=== PATIENT | female | born 1970 | race Caucasian/White ===

== ENCOUNTER 2019-07-20 14:59 | Outpatient (CLI) | payer MEDICARE, SELFPAY ==
--- NOTE | 2019-07-20 15:13 | MR_ITS ---
WS: [id number] MRI LEFT lower leg, noncontrast. HISTORY: Rule out Achilles tendon rupture. COMPARISON: LEFT ankle radiograph 03/28/2019. Multiplanar, multisequence imaging is performed of the LEFT lower extremity. Metallic artifact through the ankle as there are screws in the medial malleolus. There is focal increased signal in the distal posterior surface of the Achilles tendon, 6.2 cm superi or to its insertion site. Signal extends obliquely through the tendon but the entire tendon is otherw ise intact. This is most consistent with tendinopathy with a small amount of adjacent fluid. Tendon m easures 13 mm AP diameter at the site of pain. No muscle atrophy or edema. MR/MR lower leg LT wo con* [id number] IMPRESSION: 1. No full-thickness Achilles tendon tear. 2. Noninsertional mucoid degeneration and Achilles tendinopathy.
== END 2019-07-20 15:00 | disposition home or self-care (01) ==
LOC: RADWPI 15:04
PROVIDERS: Family Provider Internal Medicine; PCP Internal Medicine; Visit Provider Podiatrist Foot & Ankle Surgery
DX: S86.012A Strain of left Achilles tendon, initial encounter (principal); X58.XXXA Exposure to other specified factors, initial encounter
CPT/HCPCS: 73718

== ENCOUNTER 2019-07-31 08:29 | Outpatient (RCR) | payer MEDICARE, SELFPAY | END 2019-08-28 23:59 | disposition home or self-care (01) | LOC: SPT 08:29 | PROVIDERS: Family Provider Internal Medicine; PCP Internal Medicine; Referring Provider Podiatrist Foot & Ankle Surgery; Visit Provider Podiatrist Foot & Ankle Surgery | DX: M76.62 Achilles tendinitis, left leg (principal) | CPT/HCPCS: 97110; 97140; 97161 ==

== ENCOUNTER 2019-10-05 06:09 | Day surgery (SDC) | payer MEDICARE, SELFPAY ==
[2019-10-04 15:16] VITALS: BMI 38.4
[2019-10-05 06:19] VITALS: BP 121/84; PULSE 76; RESP 16; TEMP 36.7; O2SAT 97
[2019-10-05] MEDS: sodium chloride 0.9% 1,000 ML 30 ML IV (06:47)
--- NOTE | 2019-10-05 06:47 | ANES.PREANE2 ---
Pre-Anesthetic Assessment Pre-Anesthetic Assessment: Height/Weight: Height 1.75 m Weight 117.934 kg Temp Pulse Resp BP Pulse Ox 98.1 F 76 16 121/84 97 10/05/19 06:19 10/05/19 06:19 10/05/19 06:19 10/05/19 06:19 10/05/19 06:19 Preop Diagnosis: Left Achilles tendinosis with tear Proposed Procedure: Operation Date: 10/05/19 07:00 Proposed Procedures p Debridement Achilles tendonosis left (M67.88)(Left) - Butch Fraire DPM s Tendon Repair Foot secondary repair achillies tendon 37668 (M67.88)(Left) - Butch Fraire DPM Last intake: Intake Last Liquid Date 10/04/19 Last Liquid Time 23:00 Last Solid Date 10/04/19 Last Solid Time 23:00 PFSH Anesthesia PFSH: Social History Smoking and tobacco status: current every day smoker Alcohol intake: current Alcohol intake frequency: holidays/special occasions only 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
--- NOTE | 2019-10-05 06:47 | ANES.PREANE2 ---
Pre-Anesthetic Assessment Pre-Anesthetic Assessment: Height/Weight: Height 1.75 m Weight 117.934 kg Temp Pulse Resp BP Pulse Ox 98.1 F 76 16 121/84 97 10/05/19 06:19 10/05/19 06:19 10/05/19 06:19 10/05/19 06:19 10/05/19 06:19 Preop Diagnosis: Left Achilles tendinosis with tear Proposed Procedure: Operation Date: 10/05/19 07:00 Proposed Procedures p Debridement Achilles tendonosis left (M67.88)(Left) - Butch Fraire DPM s Tendon Repair Foot secondary repair achillies tendon 93245 (M67.88)(Left) - Butch Fraire DPM Was Beta Paul taken within 24 hours: Yes Last intake: Intake Last Liquid Date 10/04/19 Last Liquid Time 23:00 Last Solid Date 10/04/19 Last Solid Time 23:00 Social: Social History: Alcohol and Tobacco Packs per day: 1 Exam: Pre-Anes Outpt Exam: alert, oriented x 3, clear to auscultation bilaterally and regular rate & rhythm Airway: Submandibular: WNL Cervical ROM: WNL MP: 2 Dentition: Full History/ROS: No significant history except as noted and No significant complaints Pulmonary: Pulmonary: Cough CV/HEM: CV/HEM: HTN : : None reported Hepatic: Hepatic: None reported GI: GI: None reported Metabolic: Metabolic: None reported Musc/skel: Musc/skel: None reported Neuropsych: Neuropsych: None reported Anesthetic Plan: ASA status: 2 Anesthesia: Anesthesia Evaluation and MAC Risk of > 500 ml blood loss (7ml/kg in children): No PFSH Anesthesia PFSH: Social History Smoking and tobacco status: current every day smoker Alcohol intake: current Alcohol intake frequency: holidays/special occasions only 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
--- NOTE | 2019-10-05 06:58 | P.HPUD_ITS ---
Surgery/Procedure H&P Update DATE OF PROCEDURE: October 05, 2019 DATE H&P PERFORMED: 09/27/19 H&P UPDATE INFORMATION: I have reviewed H&P completed within last 30 days, I have examined patient prior to procedure, No changes to prior documentation and H&P is in [facility] EMR on date indicated PREOP DIAGNOSIS: Left Achilles tendinosis with tear PLANNED PROCEDURE: Operation Date: 10/05/19 07:00 Proposed Procedures p Debridement Achilles tendonosis left (M67.88)(Left) - Butch Fraire DPM s Tendon Repair Foot secondary repair achillies tendon 05776 (M67.88)(Left) - Butch Fraire DPM
[2019-10-05] MEDS: lidocaine 1% INJ 20 mL SUBCUT (07:16)
[2019-10-05 07:58] VITALS: BP 106/65; PULSE 75; RESP 18; TEMP 36.2; O2SAT 95
[2019-10-05] MEDS: oxyCODONE-APAP 5-325 mg Tablet 1 TAB PO (08:27)
[2019-10-05 08:30] VITALS: BP 118/63; PULSE 67; RESP 18; O2SAT 99
--- NOTE | 2019-10-07 21:15 | PM.OP ---
Operative Report Date of procedure: October 05, 2019 Pre-op Diagnosis: Left Achilles tendinosis with tear Post-op diagnosis: same Procedure Done: Left Achilles tendon repair CPT code 01171 Implants: Pathology: none sent Surgeon: Butch Fraire D.P.M. Anesthesia: MAC Estimated blood loss: 2 mL Condition: stable Disposition: PACU Brief History: Ms. Waters is a pleasant 49-year-old female with recalcitrant left Achilles pain. MRI consistent with Achilles tendinosis conservative treatments consisted of heel left, active and passive stretching, eccentric loading, NSAIDs, gabapentin and formal physical therapy without improvement. Recommended primary repair with extensive debridement of left Achilles tendon risks include pain, bleeding, numbness, infection, Achilles tendon rupture, failure to alleviate pain and need for further surgical intervention. Patient is agreeable wishes to proceed. Procedure: Under mild sedation the patient was brought to the operating room and placed on the operating table in supine position. A timeout was performed. Anesthesia was then administered by the anesthesia service. Local anesthesia was injected by myself consisting of 30 cc of 0.5% Marcaine plain in a local field block at the left posterior leg. Left lower extremity was scrubbed, prepped and draped utilizing normal aseptic technique. Left foot was examined a weighted with an Esmarch bandage and a tourniquet was inflated, this was high calf and inflated to 250 mmHg. lead principal technical architect elevated the left leg to allow access and direct visualization of the posterior leg. A linear longitudinal incision was made 4 cm in length this was approximately 6 cm proximal to the Achilles tendon insertion and posterior calcaneus. Dissection was carried down sharply to the level of the peritenon utilizing sharp and blunt technique care was taken to retract and preserve neurovascular and tendon structures. Bleeders were ligated and cauterized as necessary. Linear peritenon incision was made directly visualized in the underlying Achilles tendon which I was able to visualize a longitudinal split tear at the midsection, dissection through this tear I was able to visualize degenerative fibrotic and mucoid degeneration of the Achilles tendon which was sharply debrided. Utilizing a Coblation wand in a grid system fashion quarter inch spacing further debridement was performed. Longitudinal midsection tear was then repaired utilizing a buried suture of 3-0 Prolene. Incision site was flushed with copious months of sterile saline solution. Amniotic graft was introduced to the posterior aspect of the Achilles tendon this was to help reduce inflammation and scar tissue as well as adhesions. Peritenon was reapproximated utilizing 4-0 Prolene. Subcutaneous tissue reapproximated utilizing 4-0 Prolene and skin closed with 4-0 nylon. Incision site was dressed with Adaptic, sterile 4 x 4's, Kerlix and Elias wrap followed by application of cam boot. Tourniquet was deflated and a prompt hyperemic response was noted to the distal digits of the left foot. Patient tolerated the procedure and anesthesia well and was transferred to the PACU with vital sign stable and vascular status intact. Following a period of postoperative monitoring she will be discharged home was given my cell phone number is to contact with any postoperative questions or concerns.
== END 2019-10-05 08:45 | disposition home or self-care (01) ==
PROVIDERS: PCP Internal Medicine; Visit Provider Podiatrist Foot & Ankle Surgery
PROC: (CPT 27650; principal; 2019-10-05 07:00)
PROC: (CPT 27650; 2019-10-05 07:00)
DX: S86.012A Strain of left Achilles tendon, initial encounter (principal); X58.XXXA Exposure to other specified factors, initial encounter; I10 Essential (primary) hypertension; F17.210 Nicotine dependence, cigarettes, uncomplicated
CPT/HCPCS: 27650; 12345; 96365; C1713; C9359; J0131; J0690; J1100; J1885; J2001; J2250; J2704; J3010; J3490; J7030

== ENCOUNTER 2019-11-08 10:28 | Outpatient (RCR) | payer MEDICARE, SELFPAY | END 2019-11-27 23:59 | disposition home or self-care (01) | LOC: SPT 10:28 | PROVIDERS: PCP Internal Medicine; Visit Provider Podiatrist Foot & Ankle Surgery | DX: Z47.89 Encounter for other orthopedic aftercare (principal); S86 Injury of muscle, fascia and tendon at lower leg level; X58.XXXS Exposure to other specified factors, sequela | CPT/HCPCS: 97035; 97110; 97161 ==

== ENCOUNTER 2021-04-27 18:29 | Emergency (ER) | payer MEDICARE, SELFPAY ==
--- NOTE | 2021-04-27 18:35 | XRR_ITS ---
PROCEDURE INFORMATION: Exam: XR Chest Exam date and time: 04/27/2021 6:35 PM Age: 50 years old Clinical indication: Cough and shortness of breath; Additional info: SOB TECHNIQUE: Imaging protocol: XR of the chest. Views: 1 view. COMPARISON: CR Chest 1 [place] [id number] 11/19/2017 9:10 AM FINDINGS: Lungs: Unremarkable. No consolidation. Pleural spaces: Unremarkable. No pleural effusion. No pneumothorax. Heart/Mediastinum: Unremarkable. No cardiomegaly. Bones/joints: Unremarkable. XR/XR chest 1V portable [id number] IMPRESSION: No acute findings. Radiation Dose CTDIVOL = (mGy): DLP = (mGy-cm)
[2021-04-27 19:09] VITALS: BP 142/90; PULSE 75; RESP 16; TEMP 36.7; O2SAT 96; BMI 39.9
[2021-04-27 22:06] LABS: SARS Covid-2 Antigen Negative (Negative)
--- NOTE | 2021-04-27 22:24 | W.ED.COVID ---
HPI - COVID General: Chief Complaint: COVID symptoms Stated Complaint: sob, cough, chills, weak Time Seen by Provider: 04/27/21 22:18 Triage information: Has fever, cough or shortness of breath. No known COVID + exposure last 14 days History of Present Illness: HPI Narrative: 50-year-old female comes in today with persistent cough and congestion for about 3 weeks. Patient is a chronic smoker. Patient was seen last week and started on prednisone and doxycycline. Patient has just completed the prednisone which was 5 days. Patient has about 5 more days of doxycycline left. Patient appears well. Patient appears in no pain. Patient reports continued complaints of fatigue and cough and congestion. COVID 19 common symptoms: positive non-productive cough, dyspnea and fatigue COVID Results: SARS-CoV-2 Antigen (Rapid) Negative (Negative) 04/27/21 21:26 04/27/21 Review of Systems General: Reports: 10 or more systems reviewed and unremarkable except in HPI and below Const: Reports: fatigue Resp: Reports: dyspnea and non-productive cough PFSH ED PFSH: Medical History (Updated 04/27/21 @ 22:35 by NORMA Broderick) Hypertension Surgical History History of History of hysterectomy Social History Smoking and tobacco status: current every day smoker Alcohol intake: current Alcohol intake frequency: holidays/special occasions only 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: Date of last menstrual period: 10/11/01 Physical Exam Const: COMMON NORMALS: no acute distress and patient oriented x3 GENERAL APPEARANCE: cooperative HENMT: COMMON NORMALS: normocephalic, TM's normal bilaterally and Normal external nose present HEAD & SCALP: normal to inspection and normocephalic NOSE: Normal external nose present TYMPANIC MEMBRANE: TM's normal bilaterally MOUTH: Normal oral and palatal mucosa present THROAT: posterior oropharynx normal Eye: GENERAL EYE: appearance normal, both eyes and all related structures Neck/C-Spine: COMMON NORMALS: full ROM Lymph: LYMPHATIC: no lymphadenopathy noted Chest: COMMONS NORMALS: normal inspection of the chest Resp: COMMON NORMALS: normal respiratory effort EFFORT & INSPECTION: Yes able to speak in complete sentences AUSCULTATION: wheezes Cardio: COMMON NORMALS: regular rate and regular rhythm RATE: regular rate RHYTHM: regular rhythm GI: COMMON NORMALS: non-tender : COMMON NORMALS: Yes no CVA tenderness BLADDER/KIDNEY EXAM: Yes no CVA tenderness Back/Pelvis: COMMON NORMALS: no CVA tenderness and thoracic and lumbar spine normal to inspection Extremity: COMMON NORMALS: normal to inspection Neuro: COMMON NORMALS: patient oriented x3 and moves all extremities Psych: COMMON NORMALS: mental status grossly normal and cooperative Skin: COMMON NORMALS: no rashes or lesions noted GENERAL SKIN EXAM: no rashes or lesions noted Course Vital Signs: Vital signs: Vital Signs Temperature 98.1 F 04/27/21 19:09 Pulse Rate 75 04/27/21 19:09 Respiratory Rate 16 04/27/21 19:09 Blood Pressure 142/90 04/27/21 19:09 Pulse Oximetry 96 04/27/21 22:31 MDM - COVID MDM Narrative: Medical decision making narrative: Patient comes in today for complaints of cough and congestion for 3 weeks. On exam lungs have some light wheezing. Skin is warm and dry. Vital signs are normal. Differential diagnosis includes post viral cough, chronic bronchitis, COPD versus asthma. We will add to patient's regimen Symbicort inhaler 2 puffs twice daily, albuterol as needed. Patient will continue with doxycycline. And I will add back prednisone 40 mg daily for 5 more days. I instructed patient on bronchitis and COPD type symptoms. Recommended patient stop smoking. Recommend follow-up with primary care in 1 week for recheck. Patient reported understanding and agreed to plan. Patient was given a gram of Rocephin tonight and 10 mg of dexamethasone for therapy initiation. Lab Data: Labs: Lab Results 04/27/21 21:26 SARS-CoV-2 Ag (Rap id) Negative (Negative) COVID Results: SARS-CoV-2 Antigen (Rapid) Negative (Negative) 04/27/21 21:26 04/27/21 Discharge Plan Discharge Patient Disposition: Home Clinical Impression: Bronchitis Condition: Stable Prescriptions: New prednisone 20 mg tablet 20 mg PO BID 5 Days Qty: 10 RF: 0 Symbicort 80-4.5 mcg/actuation HFA aerosol inhaler 2 inh inhalation BID Qty: 10.2 RF: 0 albuterol sulfate 90 mcg/actuation HFA aerosol inhaler 2 inh inhalation Q4H PRN (Reason: shortness of breath or wheezing) Qty: 8.5 RF: 0 No Action fluoxetine [Prozac] 20 mg capsule 60 mg PO DAILY RF: 0 metoprolol tartrate 25 mg tablet 25 mg PO BID RF: 0 quetiapine [Seroquel] 100 mg tablet 100 mg PO DAILY RF: 0 (DME) heel lift See Rx Instructions .ROUTE .MEDSUPPLY Qty: 1 RF: 0 Discharge Orders: Discharge ED (Routine); Ordered 04/27/21 Ordered By: Yobany Velasquez Referrals: Luke Tucker DO [Primary Care Provider] - Discharge Diet: Usual diet Discharge Activity: Increase activity as tolerated Patient Instructions: Chronic Bronchitis (ED), Opioid Safety Activity Restrictions/Additional Instructions: Use inhalers as directed. Good oral care after the use of the budesonide?formoterol inhaler. Drink plenty of water with medications. Continue steroids for another 5 days. Complete doxycycline prescription. Follow-up with primary care in 1 week. Return to the ER for worsening symptoms or new concerns. Coding Level of Care Code ED Head Of Marketing Analytics for Isac Duque
[2021-04-27 22:31] VITALS: O2SAT 96
[2021-04-27] MEDS: dexamethasone 10 mg/mL INJ IM (22:38)
[2021-04-27] MEDS: cefTRIAXone 1,000 MG in lidocaine 1% 2.1 ML 2 MG IM (22:40)
[2021-04-27 23:01] VITALS: BP 128/87; PULSE 74; RESP 20; O2SAT 98
== END 2021-04-27 23:02 | disposition home or self-care (01) ==
PROVIDERS: Emergency Medicine; Emergency Provider Nurse Practitioner Family; PCP Internal Medicine
DX: J40 Bronchitis, not specified as acute or chronic (principal); F17.210 Nicotine dependence, cigarettes, uncomplicated
CPT/HCPCS: 71045; 87426; 96372; 99284; J0696; J1100

== ENCOUNTER 2021-05-07 08:30 | Outpatient (CLI) | payer MEDICARE, SELFPAY ==
--- NOTE | 2021-05-07 08:35 | MM_ITS ---
WS: [id number] Exam: [id number] Date/Time of Exam: 05/07/2021 8:36 AM Reason For Exam: SCREENING VIEWS: MLO and CC views both breasts. Comparison made with prior exam of 12/20/2014 and 03/24/2017. Findings: There was no sign of mass, architectural distortion or suspicious calcification in either breast. Fa [place]ty MM/[id number] Impression: BI-RADS: 2-Benign FOLLOW-UP: 1 Year Follow-up This mammogram was also analyzed by the Computer Aided Detection System R2 Imag e Enroller.
== END 2021-05-07 08:31 | disposition home or self-care (01) ==
LOC: RADSHAW 08:32
PROVIDERS: PCP Internal Medicine; Visit Provider Internal Medicine
DX: Z12.31 Encounter for screening mammogram for malignant neoplasm of breast (principal)
CPT/HCPCS: 77067

== ENCOUNTER 2021-07-27 10:26 | Outpatient (CLI) | payer MEDICARE, SELFPAY ==
--- NOTE | 2021-07-27 10:55 | CT_ITS ---
WS: [id number] CT CHEST WITH INTRAVENOUS CONTRAST HISTORY: SUBCUTANEOUS MASS OF BACK TECHNIQUE: Contiguous 5 mm axial imaging performed on the thorax. Coronal and sagittal reformats are submitted. All CT scans at [facility] use at least one of these dose optimization techniques: automated exposure control; mA and/or kV adjustment per patient size (includes targeted exams where dose is matched to clinical indication); or iterative reconstruction. CONTRAST: Omnipaque 300; 95 mL IV. DLP: 1195.23 mGy.cm COMPARISON: 06/27/2015 Lungs and central airway: Mild hyperexpansion. Mild dependent changes posteriorly in the lower lung f ields. There is mild haziness and groundglass attenuation. There are 2 subpleural irregular shaped no dules in the RIGHT thorax, image 24 of series 5 and image 41 of series 5. These are unchanged since 2 016. No new mass. Pleura: Normal. No pleural effusion. Heart and pericardium: Normal size heart with no pericardial effusion. Mediastinum and joshua: No adenopathy. Largest lymph node is 10 mm at the RIGHT hilum. No interval reyes ge since 2015. Vessels: Atherosclerosis aorta. No aneurysm. Chest wall and lower neck: No soft tissue masses. Mild nodularity and thickening of the LEFT adrenal gland is similar to the prior exam. Visualized pancreas is normal. Upper abdomen: Diffuse hepatic steatosis. Osseous structures: No destructive process. CT/CT chest w con* [id number] IMPRESSION: 1. No soft tissue mass is identified in the posterior upper thorax. 2. Long-term stability of subsolid nodules in the RIGHT thorax as described ab ove. These nodules are stable since 2016. No pneumonia.
[2021-07-27] MEDS: iohexol 300 mg/mL 100 mL Btl IV (12:11)
== END 2021-07-27 10:27 | disposition home or self-care (01) ==
LOC: RAD 10:30
PROVIDERS: PCP Internal Medicine; Visit Provider Internal Medicine
DX: R22.2 Localized swelling, mass and lump, trunk (principal)
CPT/HCPCS: 71260

== ENCOUNTER → 2021-12-07 10:30 | Outpatient (BNVA) | payer MEDICARE, SELFPAY | PROVIDERS: PCP Internal Medicine; Visit Provider Internal Medicine | DX: R00.0 Tachycardia, unspecified (principal); I49.1 Atrial premature depolarization; I49.3 Ventricular premature depolarization | CPT/HCPCS: 93270 ==

== ENCOUNTER 2022-01-25 11:14 | Emergency (ER) | payer MEDICARE, SELFPAY ==
[2022-01-25 11:20] VITALS: BP 149/80; PULSE 77; RESP 16; TEMP 36.3; O2SAT 96; BMI 41.0
--- NOTE | 2022-01-25 11:30 | ECG_ITS ---
[facility] Test Date: 2022-01-25 Pat Name: Victoria Waters Department: Room: Gender: Female Promotions Executive: : 1970 Requested By: Davon Stevenson Order Number: [id number] Arenas MD: Satya Hutson M.D. Measurements Intervals [place] Rate: 67 P: 40 TX: 173 QRS: 37 QRSD: 77 T: 68 QT: 384 QTc: 408 Interpretive Statements SINUS RHYTHM Compared to ECG 11/19/2017 08:10:15 Sinus tachycardia no longer present Electronically Signed On 01-25-2022 14:00:30 CDT by Satya Hutson M.D. [email or web address] medical [email or web address] Softwareregency hospital [id number]
--- NOTE | 2022-01-25 11:30 | CT_ITS ---
WS: [id number] CT ANGIOGRAM CEREBRAL AND CAROTID ARTERIES HISTORY: cva TECHNIQUE: CT angiogram is performed of the carotid and cerebral arteries. During arterial injection imaging is obtained from the skull vertex to the aortic arch in 1.25 mm imaging. Coronal and sagittal reformats are submitted. Additional multi planar reformats of the carotid and cerebral arteries are submitted, MIP imaging also reviewed. NASCET criteria utilized. [facility] e at least one of these dose optimization techniques: automated exposure control; mA and/or kV adjust ment per patient size (includes targeted exams where dose is matched to clinical indication); or iter ative reconstruction. CONTRAST: Omnipaque 350; 80 mL IV. DLP: 1244.84 mGy.cm COMPARISON: None available. Carotid Angiogram: Right carotid: Common carotid artery: Arises normally from the innominate artery. No significant plaque or stenosis. Internal carotid artery: No plaque or stenosis. External carotid artery: Patent. Left carotid: Common carotid artery: Arises normally from the aorta. No significant plaque or stenosis. Internal carotid artery: Small amount calcification at the bifurcation. No high-grade stenosis. External carotid artery: Patent. Right vertebral artery: Unremarkable. Left vertebral artery: Very small caliber and intermittently visualized LEFT vertebral artery. No thr ombus identified. Subclavian arteries: No stenosis or significant abnormality. Upper thorax: Normal. Thyroid gland: Normal. Osseous structures: Anterior cervical fusion C4-5. Advanced spondylitic changes in the cervical spine . Osseous fusion at C2-3. CEREBRAL ANGIOGRAM: Intracranial vertebral arteries: Small caliber LEFT vertebral artery. Normal size RIGHT vertebral art jose ramon. Basilar artery: No significant stenosis or occlusion. No aneurysm. Intracranial Internal carotid arteries: Demonstrates no significant stenosis or plaque. Middle cerebral arteries: Normal. Anterior cerebral arteries and ACOM: Mildly hypoplastic LEFT A1 segment. Posterior cerebral arteries and PCOM's: Normal. Dural venous sinuses are normally enhancing. Mastoid air cells: Normal. Paranasal sinuses: Mucoperiosteal thickening posterior LEFT ethmoid and LEFT sphenoid sinuses. Calvarium: Normal. CT/CT angio headneck* [id number] IMPRESSION: 1. No significant carotid artery stenosis. 2. Small and intermittently visualized LEFT vertebral artery. 3. No thrombus or stenosis in the [place].
--- NOTE | 2022-01-25 11:30 | CT_ITS ---
WS: [id number] CT HEAD NONCONTRAST HISTORY: Symptoms of Acute Stroke TECHNIQUE: Contiguous axial imaging performed through the brain in 2.5 mm imaging. Bone and soft tiss ue windows. Sagittal and coronal reformats reviewed. All CT scans at [facility] use at least one of these dose optimization techniques: automated exposure control; mA and/or kV adjustment per pa tient size (includes targeted exams where dose is matched to clinical indication); or iterative recon struction. DLP: 1244.84 mGy.cm COMPARISON: None available. No acute intracranial hemorrhage, midline shift or mass effect. No atrophy or prior infarcts or herniation. Ventricles: Normal size with no hydrocephalus. No inferior displacement of the cerebellar tonsils. Paranasal sinuses: Mucoperiosteal thickening in the posterior LEFT ethmoid air cells and a small amou nt of thickening in the LEFT sphenoid sinus. Mastoid air cells: Well pneumatized. Calvarium and scalp: Skull is intact with no soft tissue edema or swelling. CT/CT head wo con* [id number] IMPRESSION: 1. No acute intracranial hemorrhage or edema. 2. Very minimal posterior LEFT ethmoid air cell and LEFT sphenoid sinus diseas e.
--- NOTE | 2022-01-25 11:31 | W.ED.NEUROSD ---
HPI - Neuro Symptoms/Deficit General: Chief Complaint: Neuro Symptoms/Deficit Stated Complaint: Possible stroke Time Seen by Provider: 01/25/22 11:25 History of Present Illness: 51-year-old female presents with left facial numbness and droop. Also reports mild numbness of her left upper extremity. Denies any pain. States that her last known well was 3 PM yesterday. Denies any other focal numbness weakness tingling vision change or hearing change. Review of Systems Narrative: - CONSTITUTIONAL: Denies weight loss, fever and chills. - HEENT: Denies changes in vision and hearing. - RESPIRATORY: Denies SOB and cough. - CV: Denies palpitations and CP. - GI: Denies abdominal pain, nausea, vomiting and diarrhea. - : Denies dysuria and urinary frequency. - MSK: Denies myalgia and joint pain. - SKIN: Denies rash and pruritus. - NEUROLOGICAL: As above - PSYCHIATRIC: Denies suicidal ideation [facility] ED PFSH: Medical History (Updated 05/05/21 @ 00:01 by ) Hypertension Surgical History History of History of hysterectomy Social History Smoking and tobacco status: current every day smoker Alcohol intake: current Alcohol intake frequency: holidays/special occasions only 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: Date of last menstrual period: 05/30/01 NIH stroke score NIHSS: Level Of Consciousness - 1a: 0 Level Of Consciousness Questions - 1b: Both Correct Level Of Consciousness Commands - 1c: Both Correct Best Gaze - 2: Normal Visual Thompson - 3: No Visual Loss Facial Palsy - 4: Minor Paralysis Motor Arm Right - 5: No Drift Motor Arm Left - 5: No Drift Motor Leg Right - 6: No Drift Motor Leg Left - 6: No Drift Limb Ataxia - 7: Absent Sensory - 8: Mild To Moderate Loss Best Language - 9: No Aphasia Dysarthia - 10: Normal Extinction And Inattention - 11: 0 Score: Total Score: 2 Physical Exam Narrative: EXAM NARRATIVE: - GENERAL: Alert and oriented x 3. No acute distress. Well-nourished. - EYES: EOMI. Anicteric. - HENT: Atraumatic, no C-spine tenderness. Moist mucous membranes. No scleral icterus. No cervical lymphadenopathy. - LUNGS: Clear to auscultation bilaterally. No accessory muscle use. Equal lung sounds bilaterally. No respiratory distress. - CARDIOVASCULAR: Regular rate and rhythm. No murmur. No JVD. - ABDOMEN: Soft, non-tender and non-distended. Negative CVA tenderness bilaterally, no rebound or guarding, negative Cooper sign. No palpable masses. - EXTREMITIES: No edema. Non-tender. - SKIN: No rashes or lesions. Warm. - NEUROLOGIC: Left facial droop and numbness. Minor numbness over the left upper extremity. Otherwise no focal deficit. - PSYCHIATRIC: Cooperative. Appropriate mood and affect. Course Vital Signs: Vital signs: Vital Signs Temperature 97.3 F L 01/25/22 11:20 Pulse Rate 66 01/25/22 13:33 Respiratory Rate 14 01/25/22 13:33 Blood Pressure 115/76 01/25/22 13:00 Pulse Oximetry 96 01/25/22 11:20 MDM - Neuro Symptoms/Deficit Medical Decision Making 51-year-old presents for left facial droop and numbness. Symptoms started 3 PM yesterday she is outside of tPA window. CT and CTA did not reveal any sign of intracranial hemorrhage or other acute abnormality. Lab work unremarkable. Neurology consulted. Remainder of lab work and imaging reviewed. Discussed with hospitalist and they agreed patient would benefit from admission. Patient admitted in stable condition. Further evaluation management per hospitalist team. Lab Data : 01/25/22 11:36 01/25/22 11:[address] 01/25/22 11:30 IMPRESSION: 1. No acute intracranial hemorrhage or edema. 2. Very minimal posterior LEFT ethmoid air cell and LEFT sphenoid sinus disease. Head/Neck CTA 01/25/22 11:30 IMPRESSION: 1. No significant carotid artery stenosis. 2. Small and intermittently visualized LEFT vertebral artery. 3. No thrombus or stenosis in the [place]. Laboratory Results WBC 11.7 10^3/uL (4.0-10.0) H 01/25/22 11:36 RBC 4.93 10^6/uL (4.1-5.3) 01/25/22 11:36 Hgb 15.2 g/dL (11.5-15.3) 01/25/22 11:36 Hct 46.7 % (37.0-47.0) 01/25/22 11:36 MCV 94.7 fl (81-99) 01/25/22 11:36 MCH 30.8 pg (28.0-34.0) 01/25/22 11:36 MCHC 32.5 g/dL (30.0-36.0) 01/25/22 11:36 RDW 12.9 % (12.1-15.1) 01/25/22 11:36 Plt Count 387 10^3/cmm (130-400) 01/25/22 11:36 MPV 9.3 fL (7.4-10.4) 01/25/22 11:36 Neut % (Auto) 60.3 % 01/25/22 11:36 Lymph % (Auto) 29.3 % 01/25/22 11:36 Hendricks % (Auto) 7.2 % 01/25/22 11:36 Eos % (Auto) 2.0 % 01/25/22 11:36 Baso % (Auto) 0.9 % 01/25/22 11:36 Neut # (Auto) 7.05 10^3/uL (1.8-7.7) 01/25/22 11:36 Lymph # (Auto) 3.4 10^3/uL (0.8-4.8) 01/25/22 11:36 Hendricks # (Auto) 0.8 10^3/uL (0.2-0.9) 01/25/22 11:36 Eos # (Auto) 0.2 10^3/uL (0.0-0.8) 01/25/22 11:36 Baso # (Auto) 0.1 10^3/uL (0.0-0.1) 01/25/22 11:36 Nucleated RBC % (auto) 0 % 01/25/22 11:36 Nucleated RBCs # 0.0 /100WBC 01/25/22 11:36 PT 12.60 SECONDS (12.1-14.9) 01/25/22 11:36 INR 0.91 (0.8-1.2) 01/25/22 11:36 APTT 26.6 SECONDS (23.9-36.7) 01/25/22 11:36 Sodium 139 mmol/L (136-145) 01/25/22 11:36 Potassium 4.1 mmol/L (3.5-5.1) 01/25/22 11:36 Chloride 100 mmol/L (98-107) 01/25/22 11:36 Carbon Dioxide 28 mmol/L (22-29) 01/25/22 11:36 Anion Gap 15.1 (5-19) 01/25/22 11:36 BUN 16 mg/dL (6-20) 01/25/22 11:36 Creatinine 0.7 mg/dL (0.5-0.9) 01/25/22 11:36 GFR Calculation 87.9 mL/min (90-130) L 01/25/22 11:36 Glucose 128 mg/dL (65-115) H 01/25/22 11:36 Calculated Osmolality 291 mOsm/kg (285-295) 01/25/22 11:36 Calcium 9.3 mg/dL (8.5-10.5) 01/25/22 11:36 Total Bilirubin 0.2 mg/dL (0.15-1.2) 01/25/22 11:36 AST 37 U/L (0-32) H 01/25/22 11:36 ALT 50 U/L (0-33) H 01/25/22 11:36 Alkaline Phosphatase 129 U/L (35-105) H 01/25/22 11:36 Total Protein 6.9 g/dL (6.6-8.7) 01/25/22 11:36 Albumin 4.2 g/dL (3.5-5.2) 01/25/22 11:36 Globulin 2.7 g/dL (1.3-4.6) 01/25/22 11:36 EKG Data EKG 1: Other EKG comments: Sinus rhythm, rate of 67, anterior T wave inversions, with no sign of acute ischemia or other acute abnormality. Discharge Plan Discharge Condition: Stable Prescriptions: No Action fluoxetine [Prozac] 20 mg capsule 60 mg PO QAM (DME) heel lift See Rx Instructions .ROUTE .MEDSUPPLY Qty: 1 0RF Rx Instructions: As directed albuterol sulfate 90 mcg/actuation HFA aerosol inhaler 2 inh inhalation Q4H PRN (Reason: shortness of breath or wheezing) Qty: 8.5 0RF Tylenol Ex Str Rapid Release 500 mg Tablet 1,000 mg PO Q6H PRN (Reason: Pain) baclofen 10 mg tablet 10 mg PO BID PRN (Reason: Muscle Spasm) metoprolol tartrate 50 mg tablet 50 mg PO BID ibuprofen 200 mg Tablet 600 - 800 mg PO Q6H PRN (Reason: Pain) Excedrin Migraine 250-250-65 mg Tablet 2 tab PO Q6H PRN (Reason: Migraine Headache) Seroquel 50 mg Tablet 50 - 100 mg PO BEDTIME Referrals: Luke Tucker DO [Primary Care Provider] - Coding Level of Care Code ED Endocrinology Specialist for [facility]
[2022-01-25 11:43] LABS: Basophils # 0.1 10^3/uL (0.0-0.1); Basophils % 0.9 %; Eosinophils # 0.2 10^3/uL (0.0-0.8); Hematocrit 46.7 % (37.0-47.0); Hemoglobin 15.2 g/dL (11.5-15.3); Lymphocytes # 3.4 10^3/uL (0.8-4.8); Lymphocytes % 29.3 %; Mean Corpuscular HGB Conc 32.5 g/dL (30.0-36.0); Mean Corpuscular Hemoglobin 30.8 pg (28.0-34.0); Mean Corpuscular Volume 94.7 fl (81-99); Mean Platelet Volume 9.3 fL (7.4-10.4); Monocytes # 0.8 10^3/uL (0.2-0.9); Monocytes % 7.2 %; Neutrophils # 7.05 10^3/uL (1.8-7.7); Neutrophils % 60.3 %; Nucleated Red Blood Cells % 0 %; Platelet Count 387 10^3/cmm (130-400); Red Blood Count 4.93 10^6/uL (4.1-5.3); Red Cell Distribution Width 12.9 % (12.1-15.1); White Blood Count 11.7 10^3/uL (4.0-10.0)
[2022-01-25 11:47] VITALS: PULSE 71; RESP 8
[2022-01-25 11:56] LABS: INR 0.91 (0.8-1.2); Partial Thromboplastin Time 26.6 SECONDS (23.9-36.7)
[2022-01-25 12:00] VITALS: BP 140/73
[2022-01-25 12:05] LABS: Alanine Aminotransferase 50 U/L (0-33); Albumin Level 4.2 g/dL (3.5-5.2); Alkaline Phosphatase 129 U/L (35-105); Anion Gap 15.1 (5-19); Aspartate Amino Transferase 37 U/L (0-32); Blood Urea Nitrogen 16 mg/dL (6-20); Calcium 9.3 mg/dL (8.5-10.5); Carbon Dioxide 28 mmol/L (22-29); Chloride 100 mmol/L (98-107); Creatinine Clr Calc Pharmacy 133.8083; Globulin 2.7 g/dL (1.3-4.6); Glomerular Filtration Rate 87.9 mL/min (90-130); Glucose 128 mg/dL (65-115); Osmolality Calculated 291 mOsm/kg (285-295); Potassium 4.1 mmol/L (3.5-5.1); Sodium 139 mmol/L (136-145); Total Bilirubin 0.2 mg/dL (0.15-1.2); Total Protein 6.9 g/dL (6.6-8.7)
[2022-01-25 12:34] VITALS: PULSE 67; RESP 13
--- NOTE | 2022-01-25 12:48 | PC.PHAR ---
pt states she takes care of her own medications-pt states she doesnt have a symbicort inhaler rx filled 05/05/21-rx filled 12/25/21 90d/s for metoprolol tartrate 50mg bid and 25mg bid filled 01/05/22 30d/s pt states she takes the 50mg bid-pt states she takes seroquel 50-100mg hs rx filled 09/10/21 50mg qam and 100mg hs-notes are made in the pharmacy comments
[2022-01-25 13:00] VITALS: BP 115/76; PULSE 61; RESP 11
[2022-01-25 13:33] VITALS: PULSE 66; RESP 14
[2022-01-25] MEDS: iohexol 350 mg/mL 100 mL Btl IV (13:40)
[2022-01-25] MEDS: acetaminophen 325 mg Tablet 650 MG PO (14:43)
[2022-01-25 15:56] LABS: Alcohol Level < 10 mg/dL (0-10)
== END 2022-01-25 16:40 | disposition home or self-care (01) ==
PROVIDERS: Student in an Organized Health Care Education/Training Program; Emergency Provider Emergency Medicine; PCP Internal Medicine
DX: R20.0 Anesthesia of skin (principal); R29.810 Facial weakness; I10 Essential (primary) hypertension; F17.210 Nicotine dependence, cigarettes, uncomplicated
CPT/HCPCS: 36415; 70450; 70496; 70498; 80053; 80307; 85025; 85610; 85730; 93005; 99285; Q9967

== ENCOUNTER 2022-03-16 14:47 | Outpatient (CLI) | payer MEDICARE, SELFPAY ==
--- NOTE | 2022-03-16 | MR_ITS ---
WS: [id number] MRI BRAIN WITHOUT CONTRAST HISTORY: MOUTH DROOP DUE TO FACIAL WEAKNESS COMPARISON: CT head 01/25/2022 TECHNIQUE: Diffusion imaging, multiplanar T1, T2 and FLAIR imaging obtained. No evidence for acute infarct or hemorrhage. Paz-white matter differentiation is normal. There are a few scattered T2 and FLAIR signal hyperintensities. No prior infarct. Ventricles and extra-axial spaces are normal. No inferior displacement of cerebellar tonsils. The sella turcica and pituitary gland are unremarkabl e. Dural venous sinuses and [place] demonstrate no abnormality on this unenhanced studies. Paranasal sinuses: Small mucous retention cysts in the RIGHT maxillary sinus. Mastoid air cells: Normal. Calvarium and scalp: Intact. MR/MR head wo con* [id number] IMPRESSION: 1. No acute infarct or ischemic disease. 2. Very mild T2 and FLAIR signal hyperintensities in a distribution most likel y from small vessel disease. 3. No mass or mass effect or hemorrhage.
== END 2022-03-16 14:48 | disposition home or self-care (01) ==
LOC: RAD 14:47
PROVIDERS: PCP Internal Medicine; Visit Provider Internal Medicine
DX: R29.810 Facial weakness (principal)
CPT/HCPCS: 70551

== ENCOUNTER 2022-05-20 10:13 | Outpatient (CLI) | payer MEDICARE, SELFPAY ==
--- NOTE | 2022-05-20 10:28 | MM_ITS ---
WS: [id number] VIEWS: MLO and CC views both breasts. 3D digital tomosynthesis is also included in this exam. Comparison made with prior exam of 07/03/2007, 12/20/2014, 03/24/2017, 05/07/2021.. Findings: There was no sign of mass, architectural distortion or suspicious calcification in either breast. Sta ble appearing small nodular densities scattered throughout both breasts.Fatty MM/[place] [id number] Impression: BI-RADS: 2-Benign FOLLOW-UP: 1 Year Follow-up This mammogram was also analyzed by the Computer Aided Detection System R2 Imag e [employer]idential Interior [employer].
== END 2022-05-20 10:14 | disposition home or self-care (01) ==
LOC: RAD 10:13
PROVIDERS: PCP Internal Medicine; Visit Provider Nurse Practitioner Family
DX: Z12.31 Encounter for screening mammogram for malignant neoplasm of breast (principal)
CPT/HCPCS: 77063; 77067

== ENCOUNTER → 2023-08-10 10:17 | Outpatient (BNVA) | payer MEDICARE, SELFPAY | PROVIDERS: PCP Internal Medicine; Visit Provider Podiatrist Foot & Ankle Surgery | DX: M67.88 Other specified disorders of synovium and tendon, other site | CPT/HCPCS: 73630; 99203 ==

== ENCOUNTER → 2024-03-26 10:49 | Outpatient (BNVA) | payer MEDICARE, SELFPAY | PROVIDERS: PCP Internal Medicine; Visit Provider Podiatrist Foot & Ankle Surgery | DX: M67.88 Other specified disorders of synovium and tendon, other site (principal); M72.2 Plantar fascial fibromatosis | CPT/HCPCS: 99213 ==

== ENCOUNTER 2024-04-11 10:52 | Outpatient (CLI) | payer MEDICARE, SELFPAY ==
--- NOTE | 2024-04-11 11:45 | MRR_ITS ---
PROCEDURE INFORMATION: Exam: MR Right Lower Extremity Joint Without Contrast; Ankle Exam date and time: 04/11/2024 11:44 AM Age: 53 years old Clinical indication: Pain; Foot; Right; Additional info: Surgical planning, to include foot, eval achilles tendon, peroneal tendon and the plantar fasica TECHNIQUE: Imaging protocol: Magnetic resonance imaging of the right lower extremity without contrast. Exam focused on the ankle. COMPARISON: CR XR foot RT min 3V* [id number] 08/10/2023 10:35 AM FINDINGS: Bones/joints: Moderate posterior subtalar joint effusion. LIGAMENTS: Distal tibiofibular syndesmosis: Unremarkable. No tear. Anterior talofibular ligament: Unremarkable. No tear. Posterior talofibular ligament: Unremarkable. No tear. Calcaneofibular ligament: Unremarkable. No tear. Deltoid ligament complex: Unremarkable. No tear. TENDONS: Flexor tendons of foot: Unremarkable as visualized. Tibialis posterior tendon: Unremarkable as visualized. Peroneal tendons: Unremarkable as visualized. Extensor tendons of foot: Unremarkable as visualized. Tibialis anterior tendon: Unremarkable as visualized. Achilles tendon: Thickening and mild heterogeneity of the distal 7.5 cm of the Achilles tendon, with small interstitial fluid signal at the insertion. A moderate Achilles' tendon enthesis of the calcaneus is present. Tarsal canal (Sinus tarsi): Unremarkable. Normal signal of the fat. Tarsal tunnel: Unremarkable. Soft tissues: Mild retrocalcaneal bursal fluid. Plantar fascia: Plantar fascia is unremarkable. MR/MR ankle RT wo con* [id number] IMPRESSION: 1. Chronic Achilles tendinopathy. 2. Achilles tendon insertional enthesopathy. 3. Moderate posterior subtalar joint effusion.
== END 2024-04-11 10:53 | disposition home or self-care (01) ==
LOC: RAD 10:53
PROVIDERS: PCP Internal Medicine; Visit Provider Podiatrist Foot & Ankle Surgery
DX: M67.88 Other specified disorders of synovium and tendon, other site (principal); M79.671 Pain in right foot; M72.2 Plantar fascial fibromatosis; M25.471 Effusion, right ankle
CPT/HCPCS: 73721

== ENCOUNTER → 2024-04-12 12:53 | Outpatient (BNVA) | payer MEDICARE, SELFPAY | PROVIDERS: PCP Internal Medicine; Visit Provider Podiatrist Foot & Ankle Surgery | DX: M72.2 Plantar fascial fibromatosis (principal); M79.671 Pain in right foot; M67.88 Other specified disorders of synovium and tendon, other site; S86.011A Strain of right Achilles tendon, initial encounter; X58.XXXA Exposure to other specified factors, initial encounter | CPT/HCPCS: 99214 ==

== ENCOUNTER 2024-06-01 06:46 | Day surgery (SDC) | payer MEDICARE, SELFPAY ==
[2024-06-01] VITALS (7 sets, daily range): BP systolic 92–142; BP diastolic 60–87; PULSE 74–83; RESP 10–18; TEMP 36.2–36.5; O2SAT 96–100; BMI 41.3
[2024-06-01] MEDS: sodium chloride 0.9% 1,000 ML 30 ML IV (07:19)
[2024-06-01] MEDS: gabapentin 300 mg Capsule PO (07:19)
[2024-06-01 07:20] LABS: Glucose Point of Care 129 mg/dL (70-110)
[2024-06-01] MEDS: CELEcoxib 200 mg Capsule 400 MG PO (07:20)
--- NOTE | 2024-06-01 07:52 | P.HPUD_ITS ---
Surgery/Procedure H&P Update DATE OF PROCEDURE: June 01, 2024 DATE H&P PERFORMED: 06/01/24 H&P UPDATE INFORMATION: I have reviewed H&P completed within last 30 days, I have examined patient prior to procedure, No changes to prior documentation and H&P is in [facility] EMR on date indicated PREOP DIAGNOSIS: Right Achilles tendinosis and right plantar fasciitis PLANNED PROCEDURE: Operation Date: 06/01/24 08:20 Proposed Procedures p Achilles Tendon Repair and debridement(Right) - Butch Fraire DPM s Platelet Rich Plasma Injection achilles tendon(Right) - Butch Fraire DPM s Cortisone Injection plantar fascia(Right) - Butch Fraire DPM
--- NOTE | 2024-06-01 07:53 | PM.OPSURHP ---
Providers/Chief Complaint Primary Care Provider: Luke Tucker DO Chief Complaint: M24.751 History of Present Illness 53-year-old female presenting with chronic Achilles tendinopathy in the right foot. The condition has been persistent and degenerative, with chronic inflammation of the tendon, initially seen in July. The patient describes the Achilles as 'angry' and different from typical tendonitis, as it is degenerative rather than solely inflamed. The pain is exacerbated with prolonged activity, and symptoms include a burning sensation. Prior conservative management includes stretching exercises and anti-inflammatory use, which provided temporary improvement. There is noted discomfort when engaging in prolonged standing or activity, and certain positions cause pain to radiate. An MRI was performed recently to assess the condition. Review of Systems General: Reports: 10 or more systems reviewed and unremarkable except in HPI and below Const: Denies: fever(s) or chills Eyes: Denies: change in vision Card: Denies: chest pain or palpitations Resp: Denies: dyspnea or productive cough GI: Denies: abdominal pain, nausea or vomiting : Denies: flank pain Musc: Reports: extremity pain Skin/Breast: Denies: rash Neuro: Denies: numbness in extremities, sensory changes or frequent falls Psych: Denies: suicidal ideation Silvio/Lymph: Denies: easy bruising Medications/Allergies Home Medications Medication Instructions Recorded Confirmed Last Taken Type fluoxetine 20 mg capsule (Prozac) 60 mg PO QAM 07/09/19 05/31/24 05/31/24 History heel lift #1 ea 11/01/19 04/12/24 Unknown Rx albuterol sulfate 90 mcg/actuation 2 inh inhalation Q4H PRN shortness 04/27/21 05/31/24 Unknown Rx aerosol inhaler of breath or wheezing #8.5 grams acetaminophen 500 mg tablet 1,000 mg PO Q6H PRN Pain 01/25/22 05/31/24 05/30/24 History skyxzht-bktwcnczxbomf-[id number] 250 2 tab PO Q6H PRN Migraine Headache 01/25/22 05/31/24 05/30/24 History mg-250 mg-65 mg tablet (Excedrin Migraine) baclofen 10 mg tablet 10 mg PO BID PRN Muscle Spasm 01/25/22 05/31/24 05/30/24 History ibuprofen 200 mg tablet 600 - 800 mg PO Q6H PRN Pain 01/25/22 05/31/24 Unknown History metoprolol tartrate 50 mg tablet 50 mg PO BID 01/25/22 05/31/24 05/31/24 History quetiapine 50 mg tablet (Seroquel) 50 - 100 mg PO BEDTIME 01/25/22 05/31/24 05/30/24 History semaglutide 0.25 mg or 0.5 mg (2 2 mg SUBCUT .weekly 03/26/24 05/31/24 05/03/24 History mg/3 mL) subcutaneous pen injector ([employer]) venlafaxine 75 mg capsule,extended 75 mg PO DAILY 03/26/24 05/31/24 05/31/24 History release 24 hr Allergies Allergy/AdvReac Type Severity Reaction Status Date / Time No Known Allergies Allergy Verified 05/17/24 09:29 PFSH PFSH: Medical History Shingles Hypertension Surgical History History of History of hysterectomy Social History Smoking and tobacco/nicotine status: current every day tobacco/nicotine user Alcohol intake: current Alcohol intake frequency: holidays/special occasions only Substance/Drug Use: never Current occupational status: employed Current occupation: Nurse Vital Signs Vitals Signs: Last Vital Signs Temp 97.1 F L 06/01/24 07:00 Pulse 83 06/01/24 07:00 Resp 18 06/01/24 07:00 BP 142/87 06/01/24 07:00 Pulse Ox 97 06/01/24 07:00 O2 Del Method Room Air 06/01/24 07:00 Weight: Weight last 48 hrs Weight 280 lb Physical Exam Narrative: EXAM NARRATIVE: Patient is alert and oriented ?3 and in no acute distress. The following is a focused bilateral lower extremity exam. VASCULAR: Dorsalis pedis and posterior tibial arteries palpable +2. Capillary refill time less than 3 seconds to the distal hallux bilaterally. Calf is supple and nontender proximally and distally. No pedal edema appreciated. Pedal hair growth present. NEUROLOGICAL: Epicritic and protopathic sensations grossly intact to the lower extremities. +2 Achilles tendon reflex noted bilaterally. Negative Tinel sign upon percussion of lower extremity nerves. DERMATOLOGICAL: Lower extremity skin is well-hydrated, normal texture and turgor. There are no open sores or lesions noted to the lower extremities. No erythema or ecchymosis present to the bilateral legs and feet. MUSCULOSKELETAL: Tenderness to palpation at right Achilles insertion with palpable thickness at the area of insertion, no palpable dell at watershed zone. Pain to palpation at medial band right plantar fascia. No pain to palpation at watershed zone or myotendinous juncture right Achilles. Able to dorsiflex to 5 degrees beyond neutral right ankle. Muscle strength +5 in all 3 planes right foot and ankle. CARDIOVASCULAR: S1, S2, normal rate, normal rhythm. Dorsalis pedis and posterior tibial arteries palpable. LUNGS: Clear to auscltation, no use of acessory muscles, no crackles or wheezes. A&P Assessment and plan (1) Partial tear of right Achilles tendon: Qualifiers: Encounter type: initial encounter Qualified Code(s): S86.011A - Strain of right Achilles tendon, initial encounter (2) Achilles tendinosis of left lower extremity: (3) Plantar fasciitis, right: (4) Right foot pain: Plan 53-year-old female with history of chronic Achilles tendinopathy presenting with continued degenerative changes and persistent inflammation in the tendon. The condition has been managed conservatively with limited success, notable for chronic symptoms affecting daily activities and exacerbated by physical exertion. The MRI confirms a degenerative yet stable process without acute tears. 1. Chronic Achilles Tendinopathy The condition is to be managed initially with surgical intervention via minimally invasive debridement scheduled for May 18. The patient will be weight-bearing in a boot post-operatively for two weeks with subsequent progression to regular shoe and physical therapy. A cortisone injection will be administered to the plantar fascia for additional inflammation management. PRP treatment will be considered intra-operatively to support healing. The patient will hold Ozempic the week before surgery due to aspiration risks under anesthesia. - Undergo microdebridement procedure on May 18. - Cease Ozempic one week prior to surgery date. - Use boot for two weeks post-surgery, then transition to regular shoes. - Engage in physical therapy as prescribed post-procedure. - Consider purchasing Even-Up for shoe leveling post-surgery. - Expect to modify work schedule accordingly and inform employer of post-surgery restrictions. The patient presents with a long-standing history of right Achilles tendinopathy, now resistant to conservative treatment. Considering the chronic nature and degenerative changes noted on the MRI, minimally invasive debridement with PRP is advisable to address inflammation and support tendon healing. The selected approach minimizes recovery time and preserves mobility post-operatively. The patient consented to surgery with an understanding of potential procedural follow-up if needed. PRP is integrated as an adjunct therapy due to its autologous nature and potential healing benefits. The cortisone injection to the plantar fascia further addresses associated inflammation. Adjustments to current medication (Ozempic) are made to reduce surgical complication risks. I reviewed at length with the patient, the risks, potential complications, benefits, alternatives, expectations, and typical outcomes associated with the surgery. The risks and potential complications were explained in detail, including but not limited to infection, wound dehiscence or soft tissue complications, bleeding and hematoma, chronic edema, neuritis or nerve damage producing numbness or chronic pain, CRPS, failure to relieve pain or worsening pain, thick / painful / unsightly scar, limited motion / stiffness, malposition, delayed union, malunion, or nonunion, fracture, reaction to implants, anesthetic complications, venous thromboembolism, and deformity recurrence. I discussed the notion of no regrets with the patient as it pertains to complications and outcomes. The patient seemed to understand the nature of the proposed care and required convalescence. They asked appropriate questions, answered to their satisfaction. They are aware no guarantees can be made as to a satisfactory outcome and they understand there may be other possible unforeseen complications or outcomes not listed here that will be treated accordingly if they arise. There were no written or implied guarantees given to the patient. They gave informed consent to proceed. Planning on outpatient surgery consisting of cortisone injection right plantar fascia, right Achilles tendon debridement and PRP injection. Coding Level of Care Code Acute Code for [facility] Diagnoses Partial tear of right Achilles tendon, initial encounter S86.011A Encounter type: initial encounter Achilles tendinosis of left lower extremity M67.88 Plantar fasciitis, right M72.2 Right foot pain M79.671
--- NOTE | 2024-06-01 08:15 | ANES.PREANE2 ---
Pre-Anesthetic Assessment Height/Weight: Height 1.75 m Weight 127.006 kg Temp Pulse Resp BP Pulse Ox O2 Del Method 97.1 F L 83 18 142/87 97 Room Air 06/01/24 07:00 06/01/24 07:00 06/01/24 07:00 06/01/24 07:00 06/01/24 07:00 06/01/24 07:00 Preop Diagnosis: Right Achilles tendinosis and right plantar fasciitis Operation Date: 06/01/24 08:20 Proposed Procedures p Achilles Tendon Repair and debridement(Right) - Butch Fraire DPM s Platelet Rich Plasma Injection achilles tendon(Right) - Butch Fraire DPM s Cortisone Injection plantar fascia(Right) - Butch Fraire DPM Familial anesthetic complications: None Was Beta Paul taken within 24 hours: Yes Was Clonidine taken within 24 hours: N/A Last intake: Intake Last Liquid Date 05/31/24 Last Liquid Time 23:00 Last Solid Date 05/31/24 Last Solid Time 19:00 Social Tobacco (Marijuana gummies at times) and No alcohol 1 pack(s) per day Exam alert, oriented x 3, clear to auscultation bilaterally and regular rate & rhythm Airway Submandibular: within normal limits Cervical ROM: within normal limits Mallampati: Class III Dentition: chipped and full History/ROS No significant history except as noted and No significant complaints Pulmonary None reported CV/HEM Hypertension None reported Hepatic None reported GI None reported Metabolic Diabetes Mellitus (borderline), Hyperlipidemia and Morbid Obesity Musc/skel Lower Back Pain and Osteoarthritis/DJD Neuropsych Anxiety and Depression Anesthetic Plan ASA status: 3 Anesthesia: Anesthesia Evaluation, General and MAC Risk of > 500 ml blood loss (7ml/kg in children): No Medications/Allergies Home Medications Medication Instructions Recorded Confirmed Last Taken Type fluoxetine 20 mg capsule (Prozac) 60 mg PO QAM 07/09/19 05/31/24 05/31/24 History heel lift #1 ea 11/01/19 04/12/24 Unknown Rx albuterol sulfate 90 mcg/actuation 2 inh inhalation Q4H PRN shortness 04/27/21 05/31/24 Unknown Rx aerosol inhaler of breath or wheezing #8.5 grams acetaminophen 500 mg tablet 1,000 mg PO Q6H PRN Pain 01/25/22 05/31/24 05/30/24 History whusqpk-jkixqqxdrfdso-pmqpklek 250 2 tab PO Q6H PRN Migraine Headache 01/25/22 05/31/24 05/30/24 History mg-250 mg-65 mg tablet (Excedrin Migraine) baclofen 10 mg tablet 10 mg PO BID PRN Muscle Spasm 01/25/22 05/31/24 05/30/24 History ibuprofen 200 mg tablet 600 - 800 mg PO Q6H PRN Pain 01/25/22 05/31/24 Unknown History metoprolol tartrate 50 mg tablet 50 mg PO BID 01/25/22 05/31/24 05/31/24 History quetiapine 50 mg tablet (Seroquel) 50 - 100 mg PO BEDTIME 01/25/22 05/31/24 05/30/24 History semaglutide 0.25 mg or 0.5 mg (2 2 mg SUBCUT .weekly 03/26/24 05/31/24 05/03/24 History mg/3 mL) subcutaneous pen injector (Ozempic) venlafaxine 75 mg capsule,extended 75 mg PO DAILY 03/26/24 05/31/24 05/31/24 History release 24 hr hydrocodone 10 mg-acetaminophen 1 tab PO Q6H PRN pain 7 days #28 06/01/24 Unknown Rx 325 mg tablet tabs Allergies Allergy/AdvReac Type Severity Reaction Status Date / Time No Known Allergies Allergy Verified 05/17/24 09:29 Current Medications Generic Name Dose Route Start Last Admin Trade Name Freq PRN Reason Stop Dose Admin Sodium Chloride 1,000 mls @ 30 mls/hr 06/01/24 07:00 06/01/24 07:19 Sodium Chloride 0.9% IV 06/02/24 06:59 30 mls/hr .Q24H CHARLEY Administration PFSH Anesthesia Medical History Shingles Hypertension Surgical History History of History of hysterectomy Social History Smoking and tobacco/nicotine status: current every day tobacco/nicotine user Alcohol intake: current Alcohol intake frequency: holidays/special occasions only Substance/Drug Use: never Current occupational status: employed Current occupation: Nurse Data Anesthesia Cardiac Studies: Cardiac Event Monitor 12/07/21
[2024-06-01] MEDS: ceFAZolin 2,000 mg SDV 2000 MG IVP (08:24)
[2024-06-01] MEDS: ceFAZolin 1,000 mg SDV 1000 MG IVP (08:24)
[2024-06-01] MEDS: BUPivacaine 0.5% INJ 30 mL INJECTION (08:40)
--- NOTE | 2024-06-01 08:46 | W.PM.BPON ---
Date of Procedure: 08/12/23 Surgeon: Butch Fraire DPM Contracting Support Specialist(s): Tyler Procedure(s) performed: Right Achilles tendon debridement with PRP injection and plantar fascia cortisone injection. Findings of the procedure(s): Right Achilles tendinosis Estimated blood loss: 1 cc Specimen(s) removed: No specimens Post-operative diagnosis: Right Achilles tendinosis and right plantar fasciitis.
--- NOTE | 2024-06-01 08:46 | PM.OP ---
Operative Report Date of procedure: June 01, 2024 Pre-op diagnosis: Achilles tendinosis of right lower extremity M67.88 Foot pain, right M79.671 Plantar fasciitis of right foot M72.2 Partial tear of right Achilles tendon, initial encounter S86.011A Post-op diagnosis: Achilles tendinosis of right lower extremity M67.88 Foot pain, right M79.671 Plantar fasciitis of right foot M72.2 Partial tear of right Achilles tendon, initial encounter S86.011A Procedure done: 1) debridement right Achilles tendon. CPT code 77260 2) platelet rich plasma injection right Achilles tendon. CPT code 49159. 3) cortisone injection right plantar fascia. CPT code 29130 Surgeon: Butch Fraire DPM Lidar Technician: Tyler Estimated blood loss: 1 3 Brief History: 53-year-old female with history of chronic Achilles tendinopathy presenting with continued degenerative changes and persistent inflammation in the tendon. The condition has been managed conservatively with limited success, notable for chronic symptoms affecting daily activities and exacerbated by physical exertion. The MRI confirms a degenerative yet stable process without acute tears. 1. Chronic Achilles Tendinopathy The condition is to be managed initially with surgical intervention via minimally invasive debridement scheduled for May 18. The patient will be weight-bearing in a boot post-operatively for two weeks with subsequent progression to regular shoe and physical therapy. A cortisone injection will be administered to the plantar fascia for additional inflammation management. PRP treatment will be considered intra-operatively to support healing. The patient will hold Ozempic the week before surgery due to aspiration risks under anesthesia. The patient presents with a long-standing history of right Achilles tendinopathy, now resistant to conservative treatment. Considering the chronic nature and degenerative changes noted on the MRI, minimally invasive debridement with PRP is advisable to address inflammation and support tendon healing. The selected approach minimizes recovery time and preserves mobility post-operatively. The patient consented to surgery with an understanding of potential procedural follow-up if needed. PRP is integrated as an adjunct therapy due to its autologous nature and potential healing benefits. The cortisone injection to the plantar fascia further addresses associated inflammation. Adjustments to current medication (Ozempic) are made to reduce surgical complication risks. I reviewed at length with the patient, the risks, potential complications, benefits, alternatives, expectations, and typical outcomes associated with the surgery. The risks and potential complications were explained in detail, including but not limited to infection, wound dehiscence or soft tissue complications, bleeding and hematoma, chronic edema, neuritis or nerve damage producing numbness or chronic pain, CRPS, failure to relieve pain or worsening pain, thick / painful / unsightly scar, limited motion / stiffness, malposition, delayed union, malunion, or nonunion, fracture, reaction to implants, anesthetic complications, venous thromboembolism, and deformity recurrence. I discussed the notion of no regrets with the patient as it pertains to complications and outcomes. The patient seemed to understand the nature of the proposed care and required convalescence. They asked appropriate questions, answered to their satisfaction. They are aware no guarantees can be made as to a satisfactory outcome and they understand there may be other possible unforeseen complications or outcomes not listed here that will be treated accordingly if they arise. There were no written or implied guarantees given to the patient. They gave informed consent to proceed. Planning on outpatient surgery consisting of cortisone injection right plantar fascia, right Achilles tendon debridement and PRP injection. Procedure: Under mild sedation patient was brought to the operating room and remained on the gurney in supine position. A timeout was performed. Anesthesia was then administered by the anesthesia service. Local anesthesia injected by myself consisting of one-to-one mixture 1% lidocaine and 0.5 to Marcaine plain in a proximal V block fashion total of 20 cc right posterior leg proximal to the left Achilles. A linear longitudinal incision was made to the left Achilles tendon insertion and posterior calcaneus. Dissection was carried down sharply to the level of the peritenon utilizing sharp and blunt technique care was taken to retract and preserve neurovascular and tendon structures. Bleeders were ligated and cauterized as necessary. Linear peritenon incision was made directly visualized in the underlying Achilles tendon which I was able to visualize a longitudinal split tear at the midsection, dissection through this tear I was able to visualize degenerative fibrotic and mucoid degeneration of the Achilles tendon which was sharply debrided. Utilizing a Coblation wand in a grid system fashion quarter inch spacing further debridement was performed. Longitudinal midsection tear was then repaired utilizing a buried suture of 4-0 nylon. Incision site was flushed with copious months of sterile saline solution. Amniotic graft was introduced to the posterior aspect of the Achilles tendon this was to help reduce inflammation and scar tissue as well as adhesions. 1.5 cc of PRP harvested was injected within the mid substance of the right Achilles tendon. Injection carried out consisting of a total of 3 mL 1-1-1 mixture 0.5% Marcaine plain, dexamethasone and Kenalog to the right plantar fascia medial approach. Area covered with a Band-Aid tolerated well by patient. Incision site was dressed with Adaptic, sterile 4 x 4's, Kerlix and Elias wrap followed by application of cam boot. Tourniquet was deflated and a prompt hyperemic response was noted to the distal digits of the right foot. Patient tolerated the procedure and anesthesia well and was transferred to the PACU with vital sign stable and vascular status intact. Following a period of postoperative monitoring she will be discharged home was given my cell phone number is to contact with any postoperative questions or concerns.
[2024-06-01] MEDS: HYDROcodone-acetaminophen 10-325 mg Tablet 1 TAB PO (09:27)
--- NOTE | 2024-06-01 09:57 | ANE.PACU2 ---
Inpatient post-anesthesia follow up: Airway intact: Yes Vital signs: Temperature 97.5 F Pulse Rate 74 Respiratory Rate 18 Blood Pressure 112/70 Pulse Oximetry 100 Oxygen Delivery Me thod Room Air Oxygen Flow Rate Fraction of Inspir ed Oxygen Hydration adequate: Yes Nausea and vomiting: No Pain level: 1 Mental status: Baseline
== END 2024-06-01 09:57 | disposition home or self-care (01) ==
PROVIDERS: PCP Internal Medicine; Visit Provider Podiatrist Foot & Ankle Surgery
PROC: (CPT 27650; principal; 2024-06-01 08:10)
PROC: (CPT 0232T; 2024-06-01 08:10)
PROC: (CPT 96372; 2024-06-01 08:10)
DX: S86.011A Strain of right Achilles tendon, initial encounter (principal); M72.2 Plantar fascial fibromatosis; M79.671 Pain in right foot; M67.88 Other specified disorders of synovium and tendon, other site; I10 Essential (primary) hypertension; E11.9 Type 2 diabetes mellitus without complications; E78.5 Hyperlipidemia, unspecified; E66.01 Morbid (severe) obesity due to excess calories; Z68.41 Body mass index [BMI] 40.0-44.9, adult
CPT/HCPCS: 20550 ×2; 27680; 36416; 82962; C1713; J0690; J1100; J2405; J2704; J3010; J3490; J7030

== ENCOUNTER → 2024-06-28 07:43 | Outpatient (BNVA) | payer MEDICARE, SELFPAY | PROVIDERS: PCP Internal Medicine; Visit Provider Podiatrist Foot & Ankle Surgery | DX: M67.88 Other specified disorders of synovium and tendon, other site (principal); S86.011A Strain of right Achilles tendon, initial encounter; E11.42 Type 2 diabetes mellitus with diabetic polyneuropathy; X58.XXXA Exposure to other specified factors, initial encounter | CPT/HCPCS: 99213 ==

== ENCOUNTER 2024-08-06 16:10 | Outpatient (CLI) | payer MEDICARE, SELFPAY | END 2024-08-06 16:11 | disposition home or self-care (01) | LOC: SPT 16:11 | PROVIDERS: PCP Internal Medicine; Visit Provider Podiatrist Foot & Ankle Surgery | DX: Z46.89 Encounter for fitting and adjustment of other specified devices (principal); M67.88 Other specified disorders of synovium and tendon, other site; E11.42 Type 2 diabetes mellitus with diabetic polyneuropathy; S86.011D Strain of right Achilles tendon, subsequent encounter; X58.XXXD Exposure to other specified factors, subsequent encounter; Z98.890 Other specified postprocedural states | CPT/HCPCS: L3030 ==

== ENCOUNTER → 2024-09-13 08:42 | Outpatient (BNVA) | payer MEDICARE, SELFPAY | PROVIDERS: PCP Internal Medicine; Visit Provider Podiatrist Foot & Ankle Surgery | DX: M72.2 Plantar fascial fibromatosis (principal); E11.42 Type 2 diabetes mellitus with diabetic polyneuropathy; M79.671 Pain in right foot; M79.672 Pain in left foot | CPT/HCPCS: 20550; 73630; J1100; J3301; J3490 ==

== ENCOUNTER 2025-02-13 09:36 | Outpatient (CLI) | payer MEDICARE, SELFPAY ==
--- NOTE | 2025-02-13 09:39 | MM_ITS ---
WS: [id number] BILATERAL SCREENING DIGITAL TOMOSYNTHESIS MAMMOGRAM WITH CAD HISTORY: SCREENING COMPARISON: 05/20/2022, 05/07/2021 Bilateral CC and MLO views with tomosynthesis and synthetic mammography submitted. Computer aided detection analyzed. Breast composition: The breasts are almost entirely fatty. No suspicious masses, microcalcifications or architectural distortion. MM/MM scr BI tomosynthesis 95002 IMPRESSION: BI-RADS: 1 - Negative. FOLLOW UP: 1 Year Follow-up
== END 2025-02-13 09:37 | disposition home or self-care (01) ==
LOC: RAD 09:36
PROVIDERS: PCP Family Medicine; Visit Provider Family Medicine
DX: Z12.31 Encounter for screening mammogram for malignant neoplasm of breast (principal); R92.313 Mammographic fatty tissue density, bilateral breasts
CPT/HCPCS: 77063; 77067